=== PATIENT | male | born 1960 | race Caucasian/White ===

== ENCOUNTER 2017-10-06 14:42 | Emergency (ER) | payer OTHER ==
[2017-10-06 16:49] LABS: ABS Basophils 0 10^3/ul (0-0.2); ABS Eosinophils 0 10^3/ul (0-0.6); ABS Lymphocytes 1.2 10^3/ul (1.0-4.8); ABS Monocytes 0.4 10^3/ul (0-0.8); ABS Neutrophils 12.8 10^3/ul (1.5-7.7); ABS Nucleated RBC 0 10^3/ul; Eosinophil % 0.1 % (0-6); Hematocrit 46 % (42-52); Hemoglobin 15.7 g/dl (14.0-18.0); Lymphocyte % 8.2 % (25-47); Mean Corpuscular HGB Conc 34 g/dl (31-36); Mean Corpuscular Hemoglobin 31 pg (27-31); Mean Corpuscular Volume 90 fL (80-94); Mean Platelet Volume 8 um3 (7.4-10.4); Nucleated Red Blood Cells % 0; Platelet Count 285 10^3/ul (150-450); Red Blood Count 5.12 10^6/ul (4.0-5.4); Red Cell Distribution Width 13 % (10.5-15); White Blood Count 14.4 10^3/ul (3.5-10.8)
[2017-10-06 17:14] LABS: EGFR Non-African American 85.3 (>60)
[2017-10-06] MEDS ORDERED: Iohexol 300* (CONTRAST) 10 ML SDV IV ONE ×2 (17:46→18:42)
[2017-10-06 17:47] LABS: Urine Appearance Clear; Urine Blood Negative (Negative); Urine Color Yellow; Urine Ketones Trace (Negative); Urine Protein Negative (Negative); Urine Urobilinogen Negative (Negative)
--- NOTE | 2017-10-06 19:22 | RAD ---
CLINICAL HISTORY: Left upper quadrant pain COMPARISON: None TECHNIQUE: Contrast enhanced CT examination of the abdomen and pelvis from the lung bases through the initial tuberosities. The patient received 150 mL Omnipaque 300 intravenously prior to imaging.The patient received oral contrast as well prior to imaging. FINDINGS: VISUALIZED LUNG BASES: The visualized lung bases are grossly clear. There is no pleural effusion. ABDOMEN AND PELVIS: Involving the rectus abdominis muscle overlying the left upper abdomen there is a mixed attenuation well-circumscribed collection measuring 12.3 x 8 point I centimeters in the axial plane and 14.2 cm in the cephalocaudal projection. There is at least one small focus of hyperattenuation. Overlying this there is mild infiltration of the subcutaneous fat extending inferiorly along the left anterior abdominal wall. The liver, spleen, pancreas and adrenal glands are grossly normal in appearance. The gallbladder is normal. There are fluid density cysts in the bilateral kidneys. At the mid-level right kidney there is a 5 mm calcification. There is no hydronephrosis bilaterally. The oral contrast has progressed as far as the transverse colon. The small and large bowel are not distended. The patient's normal appendix is identified in the right lower quadrant (axial image 56). There is no gross retroperitoneal or mesenteric lymphadenopathy. A focus of calcium is noted in the otherwise normal-appearing prostate gland. The abdominal aorta and iliac arteries are normal in course and diameter. Degenerative changes include multilevel loss of intervertebral disc height involving the lower thoracic and lumbar spine.There are no sinister bone lesions. IMPRESSION: 1. CT findings are most consistent with an intramuscular abdominal wall hematoma involving the left rectus abdominous muscle. Please correlate to history of abdominal wall trauma, anticoagulation/antiplatelet therapy and/or hypocoagulability disorders. If clinically warranted further characterization can be made with ultrasound either now or as follow-up. 2. Additional chronic and degenerative changes described in the body the report.
[2017-10-06 19:44] LABS: INR 1.02 (0.77-1.02)
--- NOTE | 2017-10-06 21:05 | RAD ---
INDICATION: Cough COMPARISON: None TECHNIQUE: PA and lateral views of the chest were obtained. FINDINGS: The heart and mediastinum are normal in size and contour. The lungs are grossly clear. There is no evidence of large pleural effusion. Visualized bones are normal for the patient's age. There is no radiographic evidence of free air beneath the diaphragm IMPRESSION: No radiographic evidence of acute cardiopulmonary disease.
[2017-10-06 21:25] VITALS: BP 141/74
--- NOTE | 2017-10-08 11:06 | ED ---
Shlomo Alexandre Stephanie, scribed for Bob Gan MD on 10/06/17 at 1605 . Abdominal Pain/Male - HPI Summary HPI Summary: The pt is a 57 y/o M presenting to the ED with c/o LUQ abd swelling. The pt reports a cough that began a few days ago. He states that when he was coughing earlier today, he had sudden onset left sided abd pain. Per patient LUQ abd is swollen. He denies N/V/D and appetite. The pt had a normal BM this morning. - History of Current Complaint Chief Complaint: EDAbdPain Stated Complaint: ABD PAIN Time Seen by Provider: 10/06/17 15:12 Hx Obtained From: Patient Onset/Duration: Sudden Onset, Lasting Hours, Still Present Timing: Constant Severity Currently: Mild Pain Intensity: 3 Pain Scale Used: 0-10 Numeric Location: Discrete At: LUQ Radiates: No Aggravating Factor(s): Other: - position, coughing Alleviating Factor(s): Nothing Associated Signs And Symptoms: Positive: Other - decreased appetite. Negative: Nausea, Vomiting, Diarrhea - Allergies/Home Medications Allergies/Adverse Reactions: Allergies Allergy/AdvReac Type Severity Reaction Status Date / Time No Known Allergies Allergy Verified 10/06/17 15:05 PMH/Surg Hx/FS Hx/Imm Hx Sensory History: Denies: Hx Legally Blind EENT History: Denies: Hx Deafness - Surgical History Surgery Procedure, Year, and Place: None - Immunization History Date of Tetanus Vaccine: UTD Date of Influenza Vaccine: UTD Infectious Disease History: No Infectious Disease History: Denies: Traveled Outside the [place] in Last 30 Days - Family History Known Family History: Positive: Cardiac Disease - Social History Occupation: Employed Full-time Lives: Alone Alcohol Use: Occasionally Substance Use Type: Reports: None Smoking Status (MU): Current Every Day Smoker Review of Systems Positive: Other - decreased appetite. Negative: Fever, Chills Negative: Erythema Negative: Sore Throat Negative: Chest Pain Positive: Cough. Negative: Shortness Of Breath Positive: Abdominal Pain - LUQ. Negative: Vomiting, Diarrhea, Nausea Negative: dysuria, hematuria Negative: Myalgia, Edema Neurological: Other - Negative: dizziness All Other Systems Reviewed And Are Negative: Yes Physical Exam - Summary Physical Exam Summary: Constitutional: Well-developed, Well-nourished, Alert. (-) Distressed Skin: Warm, Dry HENT: Normocephalic; Atraumatic Eyes: Conjunctiva normal Neck: Musculoskeletal ROM normal neck. (-) JVD, (-) Stridor, (-) Tracheal deviation Cardio: Rhythm regular, rate normal, Heart sounds normal; Intact distal pulses; The pedal pulses are 2+ and symmetric. Radial pulses are 2+ and symmetric. (-) Murmur Pulmonary/Chest wall: Effort normal. (-) Respiratory distress, (-) Wheezes, (-) Rales Abd: palpable mass-possibly hernia in LUQ, (-) Distension, (-) Guarding, (-) Rebound Musculoskeletal: (-) Edema Lymph: (-) Cervical adenopathy Neuro: Alert, Oriented x3 Psych: Mood and affect Normal Triage Information Reviewed: Yes Vital Signs On Initial Exam: Initial Vitals Temp Pulse Resp BP Pulse Ox 97.9 F 87 16 140/72 97 10/06/17 15:03 10/06/17 15:03 10/06/17 15:03 10/06/17 15:03 10/06/17 15:03 Vital Signs Reviewed: Yes Diagnostics - Vital Signs Vital Signs Temp Pulse Resp BP Pulse Ox 10/06/17 15:03 97.9 F 87 16 140/72 97 - Laboratory Result Diagrams: 10/06/17 16:36 10/06/17 16:36 Lab Statement: Any lab studies that have been ordered have been reviewed, and results considered in the medical decision making process. - Radiology CXR Xray Interpretation: No Acute Changes Radiology Interpretation Completed By: ED Physician - No acute disease, Radiologist - No radiographic evidence of acute cardiopulmonary disease. - CT Abdomen/Pelvis CT Interpretation: Positive (See Comments) CT Interpretation Completed By: Radiologist - 1. CT findings are most consistent with an intramuscular abdominal wall hematoma involving the left rectus abdominous muscle. Please correlate to history of abdominal wall trauma, anticoagulation/antiplatelet therapy and/or hypocoagulability disorders. If clinically warranted further characterization can be made with ultrasound either now or as follow-up. 2. Additional chronic and degenerative changes described in the body the report. Abdominal Pain Fem Course/Dx - Course Course Of Treatment: Abd wall hematoma is likely secondary to coughing. The pt is not anticoagulated. ED physician advises pt to get coagulation workup as outpatient. Follow up with PCP in 2-3 days. - Diagnoses Provider Diagnoses: Abdominal wall hematoma Discharge - Discharge Plan Condition: Stable Disposition: HOME Prescriptions: Codeine Phosphate/Guaifenesin [Codeine-Guaifen 10-100 mg/5 ml] 5 ml PO BEDTIME # 25 ml MDD 5 ml Patient Education Materials: Hematoma (ED) Referrals: No Primary Care Phys,NOPCP [Primary Care Provider] - [facility] [place] PHYSICIAN REFERRAL [Outside] - 3 Days Additional Instructions: ED physician advises pt to get coagulation workup as outpatient. Follow up with PCP in 2-3 days. RETURN TO THE EMERGENCY DEPARTMENT FOR CHANGING OR WORSENING SYMPTOMS The documentation as recorded by the Shlomo michel Stephanie accurately reflects the service I personally performed and the decisions made by me, Bob Gan MD.
== END 2017-10-06 21:25 | disposition home or self-care (01) ==
LOC: ED 14:42
DX: M79.81 Nontraumatic hematoma of soft tissue (principal); F17.200 Nicotine dependence, unspecified, uncomplicated
CPT/HCPCS: 36415; 71046; 74177; 80053; 81003; 83605; 83690; 85025; 85610; 85730; 86140; 99283; Q9967